=== PATIENT | male | born 1995 | race Caucasian/White ===

== ENCOUNTER 2019-01-30 23:23 | Emergency (ER) | payer SELFPAY ==
[~2019-01-30] VITALS: Ht 165.1 cm; Wt 87.5 kg
[2019-01-30 23:27] VITALS: Ht 165.1 cm; Wt 87.5 kg
[2019-01-30 23:58] LABS: PLATELET COUNT 240 x10^3mcL (130-400); RED CELL DISTRIBUTION WIDTH 13.6 % (11.5-14.5)
[2019-01-30 23:59] LABS: BASOPHIL % 1.3 % (0-2)
[2019-01-31 00:17] LABS: CALCIUM 8.8 mg/dL (8.5-10.1); CARBON DIOXIDE 26.3 mmol/L (21-32); CHLORIDE SERUM 104 mmol/L (98-107); CREATININE SERUM 0.9 mg/dL (0.7-1.3); GFR1 > 60 mL/min; GLUCOSE SERUM 100 mg/dL (74-106); POTASSIUM SERUM 3.6 mmol/L (3.5-5.1); SODIUM SERUM 139 mmol/L (136-145)
[2019-01-31 00:22] LABS: ALBUMIN 3.9 g/dL (3.4-5.0); ALKALINE PHOSPHATASE 62 U/L (46-116); ALT/SGPT 32 U/L (16-63); AST/SGOT 16 U/L (15-37); BILIRUBIN TOTAL 0.4 mg/dL (0.20-1.00); TOTAL PROTEIN, SERUM 6.6 g/dL (6.4-8.2)
[2019-01-31 00:52] VITALS: BP 116/53
== END 2019-01-31 00:52 | disposition home or self-care (01) ==
LOC: ED 23:23
PROVIDERS: Emergency Medicine
DX: R07.89 Other chest pain (principal); M54.6 Pain in thoracic spine; R11.0 Nausea
CPT/HCPCS: 36415; J7030; Q0092

== ENCOUNTER 2019-02-24 09:44 | Emergency (ER) | payer SELFPAY ==
[~2019-02-24] VITALS: Ht 165.1 cm; Wt 83.9 kg
[2019-02-24 09:51] VITALS: Ht 165.1 cm; Wt 83.9 kg
[2019-02-24 12:01] VITALS: BP 130/74
== END 2019-02-24 12:01 | disposition home or self-care (01) ==
LOC: ED 09:44
DX: J03.90 Acute tonsillitis, unspecified (principal)
CPT/HCPCS: J1100